=== PATIENT | male | born 1950 | race Caucasian/White ===

== ENCOUNTER 2022-07-21 10:12 | Outpatient (CLI) | payer BC, MEDICARE, OTHER | END 2022-07-21 10:13 | disposition home or self-care (01) | LOC: BICCT 10:12 | PROVIDERS: ATTEND Family Medicine | DX: M47.817 Spondylosis without myelopathy or radiculopathy, lumbosacral region (principal); M47.816 Spondylosis without myelopathy or radiculopathy, lumbar region; M51.36 Other intervertebral disc degeneration, lumbar region; M48.061 Spinal stenosis, lumbar region without neurogenic claudication; R29.890 Loss of height; M25.78 Osteophyte, vertebrae | CPT/HCPCS: 72131 ==